=== PATIENT | male | born 1960 | race Caucasian/White ===

== ENCOUNTER 2020-07-18 18:45 | Inpatient (IN) ==
[2020-07-18 19:06] LABS: ABS Basophils 0.1 10^3/ul (0-0.2); ABS Eosinophils 0.2 10^3/ul (0-0.6); ABS Lymphocytes 3.6 10^3/ul (1.0-4.8); ABS Monocytes 0.8 10^3/ul (0-0.8); ABS Neutrophils 4.1 10^3/ul (1.5-7.7); Eosinophil % 2.5 %; Hematocrit 51 % (42-52); Hemoglobin 17.9 g/dL (14.0-18.0); Mean Corpuscular HGB Conc 35 g/dL (31-36); Mean Corpuscular Hemoglobin 32 pg (27-31); Mean Corpuscular Volume 92 fL (80-94); Mean Platelet Volume 8.8 fL (7.4-10.4); Platelet Count 222 10^3/uL (150-450); Red Blood Count 5.52 10^6 /uL (4.18-5.48); Red Cell Distribution Width 13 % (10-15); White Blood Count 8.8 10^3/uL (3.5-10.8)
[2020-07-18] MEDS ORDERED: Heparin 1,000 UNIT/ML 10 ml (10,000 UNITS) CATHLAB/DIALYSIS ONE (19:08)
[2020-07-18] MEDS ORDERED: fentaNYL 100 mcg/2 ml 50 MCG/ML VIAL ONE (19:08)
[2020-07-18] MEDS ORDERED: Midazolam 5 mg/5 ml VIAL 1 mg/ml 5 ml VIAL (5 mg) ONE (19:08)
[2020-07-18] MEDS ORDERED: Amiodarone 150 mg IVPREMIX 150 MG/100 ML BAG IV ONE (19:12)
[2020-07-18] MEDS ORDERED: nitroGLYCERIN DRIP 25,000 MCG/250 ML BTL ONE ×2 (19:16→21:00)
[2020-07-18] MEDS ORDERED: Amiodarone IV 150 mg/3 ml VIAL SLOW PUSH ONE (19:16)
[2020-07-18 19:17] LABS: Activated Partial Thrombo Time 27.2 seconds (26.0-38.0); INR 1.03 (0.82-1.09)
[2020-07-18] MEDS ORDERED: Heparin - STEMI 5,000 UNITS/ML 1 ml VIAL IV ONE (19:19)
[2020-07-18 19:24] LABS: ALT 65 U/L (7-52); AST 73 U/L (13-39); Albumin 4.3 g/dL (3.2-5.2); Albumin/Globulin Ratio 1.4 (1-3); Alkaline Phosphatase 64 U/L (34-104); Anion Gap 14 mmol/L (2-11); BUN/Creatinine Ratio 17.4 (8-20); Blood Urea Nitrogen 19 mg/dL (6-24); CO2 Carbon Dioxide 21 mmol/L (22-32); Calcium 9.4 mg/dL (8.6-10.3); Chloride 105 mmol/L (101-111); Creatine Kinase 192 U/L (10-223); EGFR African American 82.9 (>60); EGFR Non-African American 68.5 (>60); Globulin 3.1 g/dL (2-4); Glucose 135 mg/dL (70-100); LDL Cholesterol Direct 160 mg/dL; Potassium 3.3 mmol/L (3.5-5.0); Sodium 140 mmol/L (135-145); Total Protein 7.4 g/dL (6.4-8.9)
[2020-07-18] MEDS ORDERED: Bivalirudin 250 MG VIAL ONE (19:24)
[2020-07-18 19:28] LABS: Myoglobin 262.6 ng/mL (17.4-105.7)
[2020-07-18 19:29] LABS: CKMB ng/mL 6.5 ng/mL (0.6-6.3)
[2020-07-18 19:30] LABS: Troponin I 0.25 ng/mL (<0.03)
[2020-07-18] MEDS ORDERED: KCL 10 MEQ/50 ML IVPREMIX 10 MEQ/50 ML BAG ONE (19:35)
[2020-07-18] MEDS ORDERED: Iohexol 350 (CONTRAST) 200 ML MDV IV ONE (19:50)
[2020-07-18] MEDS ORDERED: Furosemide 40 mg/4 ml IV VIAL ONE (20:12)
[2020-07-18] MEDS ORDERED: Ondansetron 4 mg VIAL 2 MG/ML 2 ml VIAL IV PRN (20:43)
[2020-07-18] MEDS ORDERED: NS 0.9% 500 ml BAG 500 ML IV ONE (20:52)
[2020-07-18] MEDS ORDERED: VERAPAMIL 2.5 MG/ML 2 ML VIAL ** 5 mg/2 ml ONE (21:00)
[2020-07-18] MEDS ORDERED: Heparin 2 UNITS/ML 1000 mls 3,000 ML IV ONE (21:00)
[2020-07-18] MEDS ORDERED: Lidocaine 1% VIAL 10 MG/ML VIAL ONE (21:00)
[2020-07-18] MEDS ORDERED: Potassium Chlor 20 meq TAB.ER PO ONE (21:02)
[2020-07-18 21:56] LABS: Magnesium 1.8 mg/dL (1.9-2.7)
[2020-07-18 22:36] LABS: Hematocrit 47 % (42-52); Hemoglobin 16.9 g/dL (14.0-18.0); Mean Corpuscular HGB Conc 36 g/dL (31-36); Mean Corpuscular Hemoglobin 33 pg (27-31); Mean Corpuscular Volume 91 fL (80-94); Mean Platelet Volume 8.3 fL (7.4-10.4); Platelet Count 206 10^3/uL (150-450); Red Blood Count 5.19 10^6 /uL (4.18-5.48); Red Cell Distribution Width 13 % (10-15); White Blood Count 12.8 10^3/uL (3.5-10.8)
[2020-07-18] MEDS ORDERED: Magnesium Sulfate 2 gm BAG 2 GM/50 ML BAG IVPB ONE (22:42)
[2020-07-19 02:02] LABS: Troponin I 27.65 ng/mL (<0.03)
[2020-07-19 03:43] LABS: Troponin I > 79.00 ng/mL (<0.03)
[2020-07-19 04:59] LABS: ABS Basophils 0.1 10^3/ul (0-0.2); ABS Eosinophils 0.1 10^3/ul (0-0.6); ABS Lymphocytes 1.8 10^3/ul (1.0-4.8); ABS Monocytes 1.2 10^3/ul (0-0.8); Eosinophil % 0.4 %; Hematocrit 50 % (42-52); Hemoglobin 17.5 g/dL (14.0-18.0); Lymphocyte % 13.4 %; Mean Corpuscular HGB Conc 35 g/dL (31-36); Mean Corpuscular Hemoglobin 32 pg (27-31); Mean Corpuscular Volume 92 fL (80-94); Mean Platelet Volume 8.4 fL (7.4-10.4); Platelet Count 223 10^3/uL (150-450); Red Blood Count 5.48 10^6 /uL (4.18-5.48); Red Cell Distribution Width 13 % (10-15); White Blood Count 13.1 10^3/uL (3.5-10.8)
[2020-07-19 05:14] LABS: Calcium 9.1 mg/dL (8.6-10.3); EGFR African American 84.7 (>60); HDL Cholesterol 51.2 mg/dL; Magnesium 2.2 mg/dL (1.9-2.7); Phosphorus 2.7 mg/dL (2.5-5.0); Potassium 4.3 mmol/L (3.5-5.0)
[2020-07-19] MEDS ORDERED: Morphine 2 MG/ML SYRINGE IV ONE (05:15)
[2020-07-19 10:13] LABS: Troponin I > 79.00 ng/mL (<0.03)
[2020-07-19 15:18] LABS: Troponin I 64.18 ng/mL (<0.03)
[2020-07-20 06:12] LABS: ABS Basophils 0.1 10^3/ul (0-0.2); ABS Eosinophils 0.2 10^3/ul (0-0.6); ABS Lymphocytes 3.6 10^3/ul (1.0-4.8); ABS Monocytes 1.5 10^3/ul (0-0.8); ABS Neutrophils 7.6 10^3/ul (1.5-7.7); Eosinophil % 1.5 %; Hematocrit 49 % (42-52); Lymphocyte % 27.7 %; Mean Corpuscular HGB Conc 35 g/dL (31-36); Mean Corpuscular Hemoglobin 32 pg (27-31); Mean Corpuscular Volume 94 fL (80-94); Mean Platelet Volume 8.7 fL (7.4-10.4); Platelet Count 191 10^3/uL (150-450); Red Blood Count 5.26 10^6 /uL (4.18-5.48); Red Cell Distribution Width 13 % (10-15); White Blood Count 13.1 10^3/uL (3.5-10.8)
[2020-07-20 06:31] LABS: ALT 78 U/L (7-52); Albumin 3.9 g/dL (3.2-5.2); Albumin/Globulin Ratio 1.3 (1-3); Alkaline Phosphatase 62 U/L (34-104); BUN/Creatinine Ratio 19.8 (8-20); Blood Urea Nitrogen 22 mg/dL (6-24); CO2 Carbon Dioxide 29 mmol/L (22-32); Calcium 8.9 mg/dL (8.6-10.3); Chloride 101 mmol/L (101-111); EGFR African American 81.2 (>60); EGFR Non-African American 67.1 (>60); Globulin 2.9 g/dL (2-4); Glucose 103 mg/dL (70-100); Magnesium 1.9 mg/dL (1.9-2.7); Sodium 138 mmol/L (135-145); Total Protein 6.8 g/dL (6.4-8.9)
[2020-07-20 06:43] LABS: Anion Gap 8 mmol/L (2-11)
[2020-07-20] MEDS ORDERED: Lactated Ringers 1000 ml BAG 500 ML IV ONE (06:47)
[2020-07-20] MEDS ORDERED: Perflutren Lipid Microsphere 3 ML VIAL ONE (07:41)
[2020-07-20 08:07] LABS: Potassium Redraw 4.2 mmol/L (3.5-5.0)
[2020-07-20 12:39] LABS: ABS Basophils 0.1 10^3/ul (0-0.2); ABS Eosinophils 0.2 10^3/ul (0-0.6); ABS Lymphocytes 2.7 10^3/ul (1.0-4.8); ABS Monocytes 1.3 10^3/ul (0-0.8); ABS Neutrophils 7.3 10^3/ul (1.5-7.7); Eosinophil % 1.5 %; Hematocrit 47 % (42-52); Hemoglobin 16.5 g/dL (14.0-18.0); Lymphocyte % 23.2 %; Mean Corpuscular HGB Conc 35 g/dL (31-36); Mean Corpuscular Hemoglobin 32 pg (27-31); Mean Corpuscular Volume 93 fL (80-94); Mean Platelet Volume 8.5 fL (7.4-10.4); Platelet Count 191 10^3/uL (150-450); Red Blood Count 5.11 10^6 /uL (4.18-5.48); Red Cell Distribution Width 13 % (10-15); White Blood Count 11.5 10^3/uL (3.5-10.8)
[2020-07-20 12:54] LABS: Albumin 3.9 g/dL (3.2-5.2); Albumin/Globulin Ratio 1.4 (1-3); BUN/Creatinine Ratio 23.6 (8-20); Calcium 9.2 mg/dL (8.6-10.3); EGFR African American 85.7 (>60); EGFR Non-African American 70.8 (>60); Globulin 2.8 g/dL (2-4); Potassium 3.5 mmol/L (3.5-5.0); Total Bilirubin 1.1 mg/dL (0.2-1.0); Total Protein 6.7 g/dL (6.4-8.9)
[2020-07-21 06:21] LABS: ABS Basophils 0.1 10^3/ul (0-0.2); ABS Eosinophils 0.3 10^3/ul (0-0.6); ABS Lymphocytes 3.2 10^3/ul (1.0-4.8); ABS Monocytes 1.4 10^3/ul (0-0.8); ABS Neutrophils 6.5 10^3/ul (1.5-7.7); Eosinophil % 2.2 %; Hematocrit 47 % (42-52); Hemoglobin 15.9 g/dL (14.0-18.0); Lymphocyte % 27.7 %; Mean Corpuscular HGB Conc 34 g/dL (31-36); Mean Corpuscular Hemoglobin 32 pg (27-31); Mean Corpuscular Volume 94 fL (80-94); Mean Platelet Volume 8.8 fL (7.4-10.4); Platelet Count 172 10^3/uL (150-450); Red Blood Count 4.97 10^6 /uL (4.18-5.48); Red Cell Distribution Width 13 % (10-15); White Blood Count 11.5 10^3/uL (3.5-10.8)
[2020-07-21 06:33] LABS: Albumin 3.8 g/dL (3.2-5.2); Albumin/Globulin Ratio 1.6 (1-3); BUN/Creatinine Ratio 20.5 (8-20); EGFR African American 76.4 (>60); EGFR Non-African American 63.2 (>60); Globulin 2.4 g/dL (2-4); Potassium 4.3 mmol/L (3.5-5.0); Total Bilirubin 1.3 mg/dL (0.2-1.0); Total Protein 6.2 g/dL (6.4-8.9)
[2020-07-21] MEDS ORDERED: Potassium Chlor 20 meq TAB.ER PO ONE (08:19)
[2020-07-21 10:37] VITALS: BP 124/76
== END 2020-07-21 12:30 | disposition home or self-care (01) | DRG 174 ==
LOC: ED 18:45 → CHICATH 18:59 → ICU 21:04

== ENCOUNTER 2020-09-24 08:10 | Inpatient (IN) ==
[2020-09-24 09:20] LABS: ABS Basophils 0.1 10^3/ul (0-0.2); ABS Eosinophils 0.3 10^3/ul (0-0.6); ABS Lymphocytes 1.9 10^3/ul (1.0-4.8); ABS Monocytes 0.7 10^3/ul (0-0.8); ABS Neutrophils 3.8 10^3/ul (1.5-7.7); Eosinophil % 3.9 %; Hematocrit 45 % (42-52); Hemoglobin 16.1 g/dL (14.0-18.0); Lymphocyte % 27.8 %; Mean Corpuscular HGB Conc 36 g/dL (31-36); Mean Corpuscular Hemoglobin 32 pg (27-31); Mean Corpuscular Volume 89 fL (80-94); Nucleated Red Blood Cells % 0.1; Platelet Count 209 10^3/uL (150-450); Red Blood Count 5.04 10^6 /uL (4.18-5.48); Red Cell Distribution Width 14 % (10-15); White Blood Count 6.7 10^3/uL (3.5-10.8)
[2020-09-24 09:38] LABS: INR 1.1 (0.82-1.09)
[2020-09-24 09:39] LABS: Albumin 4.6 g/dL (3.2-5.2); Albumin/Globulin Ratio 1.5 (1-3); BUN/Creatinine Ratio 16.2 (8-20); Calcium 10.1 mg/dL (8.6-10.3); EGFR African American 81.2 (>60); EGFR Non-African American 67.1 (>60); Globulin 3.1 g/dL (2-4); Potassium 3.8 mmol/L (3.5-5.0); Total Protein 7.7 g/dL (6.4-8.9)
[2020-09-24] MEDS ORDERED: Heparin 2 UNITS/ML 1000 mls 2,000 ML IV ONE (09:57)
[2020-09-24] MEDS ORDERED: Lidocaine 1% VIAL 10 MG/ML VIAL ONE (09:57)
[2020-09-24] MEDS ORDERED: VERAPAMIL 2.5 MG/ML 2 ML VIAL ** 5 mg/2 ml ONE (09:59)
[2020-09-24] MEDS ORDERED: fentaNYL 100 mcg/2 ml 50 MCG/ML VIAL ONE (09:59)
[2020-09-24] MEDS ORDERED: nitroGLYCERIN DRIP 25,000 MCG/250 ML BTL ONE (09:59)
[2020-09-24] MEDS ORDERED: Midazolam 5 mg/5 ml VIAL 1 mg/ml 5 ml VIAL (5 mg) ONE (09:59)
[2020-09-24] MEDS ORDERED: Heparin 1,000 UNIT/ML 10 ml (10,000 UNITS) CATHLAB/DIALYSIS ONE (09:59)
[2020-09-24] MEDS ORDERED: Iohexol 350 (CONTRAST) 200 ML MDV IV ONE (10:01)
[2020-09-24] MEDS ORDERED: Bivalirudin 250 MG VIAL ONE ×2 (10:26→11:01)
[2020-09-24] MEDS ORDERED: Atropine 0.1 MG/ML 10 ml SYR (1 mg) ONE (11:13)
[2020-09-24] MEDS ORDERED: Phenylephrine IV 10 MG/ML 1 ml VIAL ONE (11:15)
[2020-09-24] MEDS ORDERED: NS 0.9% 1000 ml BAG 1,000 ML IV SCH (11:45)
[2020-09-25 06:41] LABS: White Blood Count 5.7 10^3/uL (3.5-10.8)
[2020-09-25 06:42] LABS: ABS Eosinophils 0.3 10^3/ul (0-0.6); ABS Lymphocytes 1.1 10^3/ul (1.0-4.8); ABS Monocytes 0.6 10^3/ul (0-0.8); ABS Neutrophils 3.6 10^3/ul (1.5-7.7); Hematocrit 40 % (42-52); Hemoglobin 14.1 g/dL (14.0-18.0); Mean Corpuscular HGB Conc 35 g/dL (31-36); Mean Corpuscular Hemoglobin 32 pg (27-31); Mean Corpuscular Volume 91 fL (80-94); Mean Platelet Volume 8.2 fL (7.4-10.4); Platelet Count 162 10^3/uL (150-450); Red Blood Count 4.43 10^6 /uL (4.18-5.48); Red Cell Distribution Width 14 % (10-15)
[2020-09-25 06:43] LABS: ABS Basophils 0.1 10^3/ul (0-0.2); Lymphocyte % 18.7 %
[2020-09-25 06:44] LABS: Eosinophil % 5.6 %
[2020-09-25 09:34] LABS: BUN/Creatinine Ratio 16.8 (8-20); EGFR African American 97.2 (>60); EGFR Non-African American 80.3 (>60); Potassium 4.1 mmol/L (3.5-5.0)
[2020-09-25 10:10] VITALS: BP 128/74
== END 2020-09-25 12:20 | disposition home or self-care (01) | DRG 175 ==
LOC: CHICATH 08:10 → ICU 11:40